=== PATIENT | male | born 1950 | race Caucasian/White ===

== ENCOUNTER → 2019-03-27 09:42 | Outpatient (CLI) | payer MEDICARE | END | disposition home or self-care (01) | LOC: D.US 09:42 | PROVIDERS: ATTEND Internal Medicine Nephrology | DX: E08.21 Diabetes mellitus due to underlying condition with diabetic nephropathy (principal); N18.4 Chronic kidney disease, stage 4 (severe) ==

== ENCOUNTER 2019-06-13 07:44 | Day surgery (SDC) | payer MEDICARE ==
[~2019-06-13] VITALS: Ht 177.8 cm; Wt 108.9 kg
[2019-06-13 08:28] LABS: BASOPHILS 0.5 % (0-2); EOSINOPHILS 2.7 % (0-7); HEMATOCRIT 33.3 % (42.0-54.0); HEMOGLOBIN 10.6 g/dL (13.5-17.5); IMMATURE GRANULOCYTES 0.8 % (0-5); LYMPHOCYTES 22.7 % (15-50); MCH 33.8 pg (26.0-34.0); MCHC 31.8 g/dL (31.0-37.0); MCV 106.1 fL (80.0-100.0); MEAN PLATELET VOLUME 9.1 fL (7.4-10.4); MONOCYTES 7.6 % (2-11); NEUTROPHILS 65.7 % (40-80); PLATELET COUNT 157 10x3/uL (130-400); RBC 3.14 10x6/uL (4.20-6.10); RDW 17.8 % (11.5-14.5); WBC 7.4 10x3/uL (4.8-10.8)
[2019-06-13 08:39] LABS: INR 1.07 (0.85-1.17); PROTIME 13.4 SECONDS (11.6-15.0)
[2019-06-13 08:41] LABS: CALCIUM 8.1 mg/dL (8.5-10.1); CARBON DIOXIDE 30.9 mmol/L (21.0-32.0); CREATININE - SERUM 4.3 mg/dL (0.6-1.3); POTASSIUM - SERUM 4.9 mmol/L (3.5-5.1)
[2019-06-13] MEDS ORDERED: POT CHLORIDE TAB 10M PO (08:53)
[2019-06-13] MEDS ORDERED: GLUCOTROL 5 MG T5 MG PO (08:53)
[2019-06-13] MEDS ORDERED: LIPITOR40 MG PO (08:55)
[2019-06-13] MEDS ORDERED: PLAVIX75 MG PO (08:55)
[2019-06-13] MEDS ORDERED: FUROSEMIDE10 MG/M1 PO (08:55)
[2019-06-13] MEDS ORDERED: HYTRIN10 MG PO (08:56)
[2019-06-13] MEDS ORDERED: COREG12.5 MG PO (08:56)
[2019-06-13] MEDS ORDERED: CARDIZEM LA420 MG PO (08:56)
[2019-06-13] MEDS ORDERED: LANTUS SOL100 UNIT/1 SC (08:58)
[2019-06-13 10:00] VITALS: Ht 177.8 cm; Wt 108.9 kg
[2019-06-13] MEDS ORDERED: HYDROCODON-ACE1 EAC7 PO (16:03)
--- NOTE | 2019-06-13 17:25 | NUR ---
DISCHARGE INSTRUCTIONS REVIEWED WITH PATIENT, SPOUSE, AND FAMILY. PATIENT DRESSED IN PERSONAL CLOTHING WITH ARM SLING IN PLACE AND IN CORRECT POSITION TO LUE. DISCHARGED HOME VIA WHEELCHAIR TO PRIVATE VEHICLE WITH SPOUSE
--- NOTE | 2019-06-16 15:54 | OP ---
PATIENT NAME: CONCHIS HOOPER MEDICAL RECORD: [id number] :52 LOCATION:[facility] ADMISSION DATE: SURGEON: NADIA HILLMAN MD DATE OF OPERATION: 06/13/2019 REFERRED BY: Theo Steward MD PREOPERATIVE DIAGNOSIS: Chronic kidney disease V, N18.5. POSTOPERATIVE DIAGNOSIS: Chronic kidney disease V, N18.5. OPERATION PERFORMED: Creation of a left brachiocephalic Lydia AV fistula. SURGEON: Nadia Hillman MD ANESTHESIA: Per FRAME COVERER with regional nerve block and TIVA. PREOPERATIVE NOTE: Mr. Hooper is a 69-year-old obese white male with chronic kidney disease stage V, anticipating he will need dialysis within a few months. Dr. Steward referred him to me for creation of a fistula. I saw him actually in the office for the first time in March and it has taken this long to get him to the operating room in part waiting for cardiac clearance from Dr. Calderon in [place]. We now have that and the patient has been off his Plavix and is brought to the operating room as an outpatient for creation of his fistula. There was initially thought that he would want to have a laparoscopic peritoneal dialysis catheter implantation, but he decided he does not want that at this time. Under regional nerve block and IV sedation in supine position with the left arm abducted, the patient was prepped and draped in sterile manner. A Lupe drain was used as a proximal venous tourniquet and nitroglycerin applied to the intact skin of the arm and forearm. I performed a duplex ultrasound examination of the veins of his arm and forearm and found the cephalic vein and radial artery in the distal forearm to be too small and he had an attractive cephalic vein above the antecubital space and a good median cubital vein communicating with that and a normal sized and fairly clean-appearing brachial artery, so I decided to go with the brachiocephalic fistula. I made a transverse incision below the crease of the joint and exposed the median cubital vein and the brachial artery. The vessels were controlled as needed with doubly looped Silastic tapes. The vein was ligated distally and then transected and bevelled and flushed with heparinized saline and treated with topical papaverine. The artery was occluded with the Silastic loops and a 6 mm arteriotomy made and the artery flushed with heparinized saline and the vein then anastomosed end of vein to side of artery with running 7-0 Prolene. When completed, with release of the occluding loops, excellent flow and a palpable thrill appeared immediately. Doppler examination demonstrated continuous pulsatile Doppler flow in the recipient vein and then the artery proximally and persistent pulsatile flow in the radial and ulnar arteries at the wrist. The suture line was treated with Evicel and was hemostatic at the completion of the procedure. The wound was closed with interrupted inverted 3-0 Vicryl and running OPERATIVE REPORT [id number] CONCHIS HOOPER intracuticular 4-0 Monocryl and Dermabond glue. It was dressed with Maxorb Ag, Tegaderm, and Cavilon skin prep and the patient then awakened and taken to the recovery room. PLAN: The patient will go home later today and will follow up in my office with an appointment in about 2 weeks. He can leave the original dressing on, as long as he wishes or may change it when it is needed and keep the wound clean and dry and covered with a clean, dry sterile gauze dressing. He is given a prescription for pain medication. He is given a prescription for 10 Barco 5/325 he can take 1 p.o. q.4 hours p.r.n. pain. He is still under anesthetic at this time and the arm is numb. He will go home in a sling. He is to take his arm out of the sling and resume normal activities with it tomorrow. TRANSINT:[id number] Voice Confirmation ID: [id number] DOCUMENT ID: [id number] NADIA HILLMAN MD at 1554 CC: THEO STEWARD [id number] DICTATION DATE: 06/13/19 1614 L[employer] VOLTAGE ELECTRICIAN: 06/14/19 0256 [facility] 06/13/19 [facility] [address] [place] [address]
== END 2019-06-13 17:25 | disposition home or self-care (01) ==
LOC: D.OPS 07:44
PROVIDERS: Surgery; ATTEND Internal Medicine Nephrology
DX: N18.5 Chronic kidney disease, stage 5 (principal)